=== PATIENT | male | born 1980 | race Caucasian/White ===

== ENCOUNTER 2022-07-10 16:03 | Emergency (ER) | payer OTHER, SELFPAY ==
[2022-07-10 16:59] VITALS: BP 109/66; PULSE 69; RESP 18; TEMP 36.8; O2SAT 97; BMI 26.5
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
--- OUTSIDE RECORDS SUMMARY | 2022-07-10 18:50 | XMS_ITS | Continuity of Care Document ---
:1980 Author Organization [facility] Address [address] [place] [address]- Care Team Providers Name Role Phone Jozef RAPP, Leona Combs Primary Care Physician Encounter [facility] [place] Date(s): 12/12/20 - 01/11/21 [facility] [address], [place] [address] Allergies, Adverse Reactions, Alerts Substance Reaction Severity Status shellfish SOB/hives Active Medications albuterol CFC free 90 mcg/inh inhalation aerosol 1, puffs, Inhalation, Every 4 hours, PRN, # 18 Gm, Refills 3, Tot. Refills 3, Maintenance, 12/30/20 14:19:00 EDT, Aerosol, Route to Pharmacy Electronically, [id number], [facility]/pharmacy #[id number], 177, cm, 12/30/20 13:07:00 EDT, Heig... Start Date: 12/30/20 Status: Ordered Problem List Condition Effective Dates Status Health Status Informant Asthma(Confirmed) Active Foreign body of thigh, 01/08/13 Active superficial(Confirmed) Social History Social History Type Response Smoking Status 10 or more cigarettes (1/2 p ack or more)/day in last 30 days entered on: 12/30/20 Sex
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
--- OUTSIDE RECORDS SUMMARY | 2022-07-10 18:51 | XMS_ITS | Continuity of Care Document ---
:1980 Author Organization [facility] Address [address] [place] [address]- Care Team Providers Name Role Phone Jozef ELECTRIC SWITCH TESTER, Leona Combs Primary Care Physician Encounter [facility] [place] Date(s): 05/13/21 - 06/12/21 [facility] [address] [place], [place] [address] Allergies, Adverse Reactions, Alerts Substance Reaction Severity Status shellfish SOB/hives Active Immunizations Given and Recorded Vaccine Date Status Refusal Reason tetanus-diphtheria toxoids (Td) 10/16/14 Recorded tetanus-diphtheria toxoids (Td) 03/09/12 Recorded tetanus-diphtheria toxoids (Td) 03/09/11 Recorded tetanus/diphtheria/pertussis, acel(Tdap) 12/22/12 Recorde d Medications albuterol CFC free 90 mcg/inh inhalation aerosol 1, puffs, Inhalation, Every 4 hours, PRN, # 18 Gm, Refills 3, Tot. Refills 3, Maintenance, 12/30/20 14:19:00 EDT, Aerosol, Route to Pharmacy Electronically, [id number], [facility]/pharmacy #[id number], 177, cm, 12/30/20 13:07:00 EDT, Heig... Start Date: 12/30/20 Status: OrderedEC Naprosyn 500 mg oral enteric coated tablet 1 tablet = 500 mg, By Mouth, 2 times a day, # 60 tablet, 1 Refills, Acute 05/14/22 15:29:00 EDT, 05/14/21 15:29:00 EDT, EC Tablet, [facility]/pharmacy #[id number], Partial fill upon patient request if the prescription is for a schedule II opioid drug., 177, cm, 08... Start Date: 05/14/21 Stop Date: 05/14/22 Status: Ordered Problem List Condition Effective Dates Status Health Status Informant Asthma(Confirmed) Active Foreign body of thigh, 01/08/13 Active superficial(Confirmed) Social History Social History Type Response Smoking Status 10 or more cigarettes (1/2 p ack or more)/day in last 30 days entered on: 12/30/20 Sex
--- OUTSIDE RECORDS SUMMARY | 2022-07-10 18:51 | XMS_ITS | Continuity of Care Document ---
:1980 Author Organization [facility] Address [address] [place] [address]- Care Team Providers Name Role Phone Jozef SALES PROJECT ADMINISTRATOR, Leona Combs Primary Care Physician [place] [facility] [place](s[place] 05/11/21 - 05/18/21 [facility] [address] [place] [address]- Encounter Diagnosis Lateral epicondylitis, left elbow (Discharge Diagnosis) - 05/11/21 Attending Physician: June Paul MD Allergies, Adverse Reactions, Alerts Substance Reaction Severity [...] 14:19:00 EDT, Aerosol, Route to Pharmacy Electronically, [id number], [facility]/pharmacy #[id number], 177, cm, 12/30/20 13:07:00 EDT, Heig... Start Date: 12/30/20 Status: OrderedEC Naprosyn 500 mg oral enteric coated tablet 1 tablet = 500 mg, By Mouth, 2 times a day, # 60 tablet, 1 Refills, Acute 05/14/22 15:29:00 EDT, 05/14/21 15:29:00 EDT, EC Tablet, [facility]acy [id number], Partial fill upon patient request if the prescription is for a schedule II opioid drug., 177, cm, 08... Start Date: 05/14/21 Stop Date: 05/14/22 Status: Ordered Problem List Condition Effective Dates Status Health Status Informant Asthma(Confirmed) Active Foreign body of thigh, 01/08/13 Active superficial(Confirmed) Diagnosis Diagnosis Type Effective Dates Health Status Clinical In formant Service Lateral Discharge 05/11/21 epicondylitis, Diagnosis left elbow Vital Signs Most recent to oldest [Reference Range]: 1 Height 177 cm (05/11/21 4:00 PM) Weight 90.7 kg (05/11/21 4:00 PM) Oxygen Saturation [94-100 %] 97 % (05/11/21 4:00 PM) Pulse Rate [55-90 bpm] 51 bpm *L* (05/11/21 4:00 PM) Body Mass Index [18.5-24.99] 28.95 *H* (05/11/21 4:00 PM) Blood Pressure [90-138/55-84 mm Hg] 104/72 mm Hg (05/11/21 4:00 PM) Mode of Delivery (Oxygen) Room air (05/11/21 4:00 PM) Blood pressure sites Arm, right (05/11/21 4:00 PM) Dry Weight 90.7 kg (05/11/21 4:00 PM) Weight Obtained Via Standing scale (05/11/21 4:00 PM) Social History Social History Type Response Smoking Status 10 or more cigarettes (1/2 p ack or more)/day in last 30 days entered on: 12/30/20 Sex
--- OUTSIDE RECORDS SUMMARY | 2022-07-10 18:51 | XMS_ITS | Continuity of Care Document ---
:1980 Author Organization [facility] Address [address] [place] [address]- Care Team Providers Name Role Phone Not on Staff, PCP Primary Care Physician Unavailable Encounter [facility] Date(s): 02/17/21 - 03/19/21 [facility] [address], [place] [address]
--- OUTSIDE RECORDS SUMMARY | 2022-07-10 18:51 | XMS_ITS | Continuity of Care Document ---
:1980 Author Organization [facility] Address [address] [place] [address]- Care Team Providers Name Role Phone Stephen GOLDEN, Abida Mcnair Primary Care Physician En[place] [facility] [place](s): 02/16/22 - 02/23/22 [facility] [address] [place], [place] [address] Encounter Diagnosis Nasal congestion (Discharge Diagnosis) - 02/16/22 Asthma (Discharge Diagnosis) - 02/16/22 Attending Physician: Dara Pete NP Allergies, Adverse Reactions, Alerts Substance Reaction [...] Gm, Refills 3, Tot. Refills 3, Maintenance, 02/16/22 13:19:00 EDT, Aerosol, Route to Pharmacy Electronically, [id number], [facility]/pharmacy #[id number], 177, cm, 05/18/21 16:34:00 EDT, Heig... Start Date: 02/16/22 Status: OrderedXyzal 5 mg oral tablet 1 tablet = 5 mg, By Mouth, Daily in PM, # 14 tablet, 0 Refills, Maintenance, 02/16/22 13:20:00 EDT, Tablet, [id number], Partial fill upon patient request if the prescription is for a schedule II opioid drug., 1 tablet By Mouth Daily in PM,x14... Start Date: 02/16/22 Stop Date: 03/02/22 Status: Ordered Problem List Condition Effective Dates Status Health Status Informant Asthma(Confirmed) Active Foreign body of thigh, 01/08/13 Active superficial(Confirmed) Diagnosis Diagnosis Type Effective Dates Health Clinical Infor mant Status Service Asthma Discharge 02/16/22 Diagnosis Nasal congestion Discharge 02/16/22 Diagnosis Social History Social History Type Response Smoking Status 10 or more cigarettes (1/2 p ack or more)/day in last 30 days entered on: 12/30/20 Sex
--- OUTSIDE RECORDS SUMMARY | 2022-07-10 18:51 | XMS_ITS | Continuity of Care Document ---
:1980 Author Organization [facility] Address [address] [place] [address]- Care Team Providers Name Role Phone Jozef RAPP, Leona Combs Primary Care Physician Encounter [facility] Date(s): 05/18/21 - 06/17/21 [facility] [address] [place], [place] [address] Attending Physician: Be Casanova Admitting Physician: AdmBe tellez Referring Physician: AdmtrBe Allergies, Adverse Reactions, Alerts Substance Reaction Severity [...] 14:19:00 EDT, Aerosol, Route to Pharmacy Electronically, [id number], [facility]/pharmacy #[id number], 177, cm, 12/30/20 13:07:00 EDT, Heig... Start Date: 12/30/20 Status: OrderedEC Naprosyn 500 mg oral enteric coated tablet 1 tablet = 500 mg, By Mouth, 2 times a day, # 60 tablet, 1 Refills, Acute 05/14/22 15:29:00 EDT, 05/14/21 15:29:00 EDT, EC Tablet, [id number], Partial fill upon patient request if the [...]
--- OUTSIDE RECORDS SUMMARY | 2022-07-10 18:51 | XMS_ITS | Continuity of Care Document ---
:1980 Author Organization [facility] Address [address] [place] [address]- Care Team Providers Name Role Phone Stephen GOLDEN, Abida Mcnair Primary Care Physician Encounter [facility] [place] Date(s): 02/17/22 - 03/19/22 [facility] [address] [place], [place] [address] Allergies, Adverse Reactions, Alerts Substance Reaction Severity [...] 13:19:00 EDT, Aerosol, Route to Pharmacy Electronically, [id number], [facility]/pharmacy #[id number], 177, cm, 05/18/21 16:34:00 EDT, Heig... Start Date: 02/16/22 Status: OrderedXyzal 5 mg oral tablet 1 tablet = 5 mg, By Mouth, Daily in PM, # 14 tablet, 0 Refills, Maintenance, 02/16/22 13:20:00 EDT, Tablet, [facility]/pharmacy #[id number], Partial fill upon patient request if the [...]
--- OUTSIDE RECORDS SUMMARY | 2022-07-10 18:51 | XMS_ITS | Continuity of Care Document ---
:1980 Author Organization [facility] Address [address] [place] [address]- Care Team Providers Name Role Phone Stephen GOLDEN, Abida Mcnair Primary Care Physician [place] [facility] [place] 02/16[place]22 - 03/18/22 [facility] [address] [place], [place] [address] Attending Physician: Admtr, Carson8 Admitting Physician: Admtr, Ar8 Referring Physician: Admtr, Ar8 Allergies, Adverse Reactions, Alerts Substance Reaction Severity [...] 13:19:00 EDT, Aerosol, Route to Pharmacy Electronically, [id number], [facility]/pharmacy #[id number], 177, cm, 05/18/21 16:34:00 EDT, Heig... Start Date: 02/16/22 Status: OrderedXyzal 5 mg oral tablet 1 tablet = 5 mg, By Mouth, Daily in PM, # 14 tablet, 0 Refills, Maintenance, 02/16/22 13:20:00 EDT, Tablet, [id number], Partial fill upon patient request if the [...]
--- OUTSIDE RECORDS SUMMARY | 2022-07-10 18:51 | XMS_ITS | Continuity of Care Document ---
:1980 Author Organization [facility] Address [address] [place] [address]- Care Team Providers Name Role Phone Jozef RAPP, Leona Combs Primary Care Physician Encounter [facility] [place] Date(s): 01/16/21 - 05/16/21 [facility] [address] [place] [address]- Attending Physician: Leona Haskins NP Allergies, Adverse Reactions, Alerts Substance Reaction Severity Status shellfish SOB/hives Active Medications albuterol CFC free 90 mcg/inh inhalation aerosol 1, puffs, Inhalation, Every 4 hours, PRN, # 18 Gm, Refills 3, Tot. Refills 3, Maintenance, 12/30/20 14:19:00 EDT, Aerosol, Route to Pharmacy Electronically, [id number], [facility]/pharmacy #[id number], 177, cm, 12/30/20 13:07:00 EDT, Heig... Start Date: 12/30/20 Status: OrderedEC Naprosyn 500 mg oral enteric coated tablet 1 tablet = 500 mg, By Mouth, 2 times a day, # 60 tablet, 1 Refills, Acute 05/14/22 15:29:00 EDT, 05/14/21 15:29:00 EDT, EC Tablet, [id number], Partial fill upon patient request if [...]
--- OUTSIDE RECORDS SUMMARY | 2022-07-10 18:51 | XMS_ITS | Continuity of Care Document ---
:1980 Author Organization [facility] Address [address] [place] [address]- Care Team Providers Name Role Phone Jozef RAPP, Leona Combs Primary Care Physician [place] [facility] [place]/18/21 - 05/25/21 [facility] [address] [place] [address]- Encounter Diagnosis Dermatographia (Discharge Diagnosis) - 05/18/21 Attending Physician: Serina Pedraza MD Referring Physician: [...] 14:19:00 EDT, Aerosol, Route to Pharmacy Electronically, [id number], [facility]/pharmacy #[id number], 177, cm, 12/30/20 13:07:00 EDT, Heig... Start Date: 12/30/20 Status: OrderedEC Naprosyn 500 mg oral enteric coated tablet 1 tablet = 500 mg, By Mouth, 2 times a day, # 60 tablet, 1 Refills, Acute 05/14/22 15:29:00 EDT, 05/14/21 15:29:00 EDT, EC Tablet, [id number], Partial fill upon patient request if the prescription is for a schedule II opioid drug., 177, cm, 08... Start Date: 05/14/21 Stop Date: 05/14/22 Status: Ordered Problem List Condition Effective Dates Status Health Status Informant Asthma(Confirmed) Active Foreign body of thigh, 01/08/13 Active superficial(Confirmed) Diagnosis Diagnosis Type Effective Dates Health Status Clinical In formant Service Dermatographia Discharge 05/18/21 Diagnosis Vital Signs Most recent to oldest [Reference Range]: 1 Height 177 cm (05/18/21 4:34 PM) Oxygen Saturation [94-100 %] 98 % (05/18/21 4:34 PM) Pulse Rate [55-90 bpm] 59 bpm (05/18/21 4:34 PM) Blood Pressure [90-138/55-84 mm Hg] 110/66 mm Hg (05/18/21 4:34 PM) Blood pressure sites Arm, right (05/18/21 4:34 PM) Social History Social History Type Response Smoking Status 10 or more cigarettes (1/2 p ack or more)/day in last 30 days entered on: 12/30/20 Sex
== END 2022-07-10 19:08 | disposition home or self-care (01) ==
PROVIDERS: Emergency Provider Emergency Medicine
DX: S39.012A Strain of muscle, fascia and tendon of lower back, initial encounter (principal); V43.02XA Car driver injured in collision with other type car in nontraffic accident, initial encounter; Y93.89 Activity, other specified; Y92.414 Local residential or business street as the place of occurrence of the external cause; Y99.0 Civilian activity done for income or pay
CPT/HCPCS: 99282; 99283